=== PATIENT | male | born 1960 | race Caucasian/White ===

== ENCOUNTER 2023-10-12 16:19 | Observation (INO) ==
[2023-10-12 19:06] LABS: Hemoglobin 16.2 g/dL (13.2-16.3); Mean Corpuscular Hemoglobin 30.1 pg (27-33); Mean Corpuscular Hgb Conc 33.8 g/dL (31-36); Mean Corpuscular Volume 89.1 fL (80-97); Mean Platelet Volume 8.6 fL (7.5-11.2); Platelet Count 244 10^3/uL (150-450); Red Blood Count 5.39 10^6/uL (4.06-5.63); Red Cell Distribution Width 13.3 % (12-17)
[2023-10-12] MEDS: Clindamycin 600 MG/D5W BAG 600 MG/50 ML BAG IV ONE (19:17)
[2023-10-12 19:42] LABS: Albumin 4.8 g/dL (3.2-5.2); Albumin/Globulin Ratio 1.5 (1-3); C Reactive Protein 96.78 mg/L (<8.01); Calcium 9.6 mg/dL (8.6-10.3); Creatinine, Serum 0.71 mg/dL (0.67-1.17); Globulin 3.2 g/dL (2-4); Potassium 4.4 mmol/L (3.5-5.0); Total Bilirubin 0.9 mg/dL (0.2-1.0); eGFR CKD-EPI 104.4 (>60)
[2023-10-12 19:43] LABS: ABS Basophils 0.2 10^3/uL (0.0-0.1); ABS Eosinophils 0.1 10^3/uL (0.0-0.5); ABS Lymphocytes 1.4 10^3/uL (1.0-4.8); ABS Monocytes 0.8 10^3/uL (0.0-1.1); ABS Neutrophils 8.6 10^3/uL (1.5-7.6); ABS Nucleated RBC 0.01 10^3/ul; Eosinophil % 0.5 %; Lymphocyte % 12.5 %; Nucleated Red Blood Cells % 0.1 %/100WBC (0.0-0.8)
[2023-10-12] MEDS: Lactated Ringers 1000 ml BAG 1,000 ML IV ONE (19:45)
[2023-10-12] MEDS: Iohexol 350 (CONTRAST) 500 ML MDV IV ONE (20:13)
[2023-10-12] MEDS: Morphine 4 MG/ML VIAL (1 ml) IV ONE (22:01)
[2023-10-12] MEDS: cefTRIAXone 2 gm/50 mL D5W 2 GM/50 ML BAG IV SCH (23:55)
[2023-10-12] MEDS: Enoxaparin 40 MG/0.4 ML SYR SUBCUT SCH (23:55)
[2023-10-13] MEDS: metroNIDAZOLE IV 500 MG/100ML 500 MG/100 ML BAG IVPB SCH ×2 (00:55→10:38)
[2023-10-13 05:26] LABS: ABS Basophils 0.1 10^3/uL (0.0-0.1); ABS Eosinophils 0.1 10^3/uL (0.0-0.5); ABS Lymphocytes 1.6 10^3/uL (1.0-4.8); ABS Monocytes 0.8 10^3/uL (0.0-1.1); Eosinophil % 0.6 %; Hematocrit 42.3 % (38-53); Hemoglobin 14.6 g/dL (13.2-16.3); Mean Corpuscular Hemoglobin 30.8 pg (27-33); Mean Corpuscular Hgb Conc 34.6 g/dL (31-36); Mean Corpuscular Volume 88.9 fL (80-97); Mean Platelet Volume 8.3 fL (7.5-11.2); Platelet Count 220 10^3/uL (150-450); Red Blood Count 4.75 10^6/uL (4.06-5.63); Red Cell Distribution Width 12.8 % (12-17); White Blood Count 10.5 10^3/uL (3.6-10.2)
[2023-10-13 06:04] LABS: C Reactive Protein 96.07 mg/L (<8.01); Calcium 8.6 mg/dL (8.6-10.3); Creatinine, Serum 0.66 mg/dL (0.67-1.17); Potassium 4.3 mmol/L (3.5-5.0); eGFR CKD-EPI 106.7 (>60)
[2023-10-13] MEDS: methylPREDNISolone SOD SUCC 40 mg/ml 1 ml VIAL IV SCH (10:38)
[2023-10-13] MEDS ORDERED: Dextrose 50% Syringe 50 ml 25 GM/50 ML SYRINGE IV PUSH PRN (13:49)
[2023-10-13] MEDS ORDERED: Zosyn per Pharmacy NOTE FOLLOW UP SCH (14:00)
[2023-10-13] MEDS: Piperacillin/Tazobac 3.375 BAG 3.375 GM/100 ML BAG IV ONE (14:11)
[2023-10-13] MEDS: ZOSYN 3.375 GM Q8H per EXTENDED INFUSION IV SCH (17:44)
[2023-10-13] MEDS ORDERED: cefTRIAXone 2 gm/50 mL D5W 2 GM/50 ML BAG IV SCH (21:00)
[2023-10-14 06:07] LABS: ABS Monocytes 0.3 10^3/uL (0.0-1.1); ABS Neutrophils 12.2 10^3/uL (1.5-7.6); ABS Nucleated RBC 0.01 10^3/ul; Hematocrit 42.3 % (38-53); Hemoglobin 14.6 g/dL (13.2-16.3); Lymphocyte % 7.3 %; Mean Corpuscular Hemoglobin 30.5 pg (27-33); Mean Corpuscular Hgb Conc 34.4 g/dL (31-36); Mean Corpuscular Volume 88.5 fL (80-97); Mean Platelet Volume 8.6 fL (7.5-11.2); Platelet Count 258 10^3/uL (150-450); Red Blood Count 4.78 10^6/uL (4.06-5.63); Red Cell Distribution Width 12.9 % (12-17); White Blood Count 13.5 10^3/uL (3.6-10.2)
[2023-10-14 06:22] LABS: Calcium 8.9 mg/dL (8.6-10.3); Creatinine, Serum 0.77 mg/dL (0.67-1.17); Magnesium 2.2 mg/dL (1.9-2.7); Potassium 4.7 mmol/L (3.5-5.0); eGFR CKD-EPI 101.9 (>60)
[2023-10-14 09:40] VITALS: BP 131/87
[2023-10-14] MEDS ORDERED: Amoxicillin/Clavul 875/125 TAB (Augmentin 875 tab) PO SCH (21:00)
== END 2023-10-14 10:45 | disposition home or self-care (01) ==
LOC: EDHOLD 16:19 → ED 16:19 → SUATTDRO 22:53 → EDHOLD 22:58 → MED 10-13 03:11
PROVIDERS: ADMIT Hospitalist; ATTEND Internal Medicine